=== PATIENT | male | born 1990 | race Caucasian/White ===

== ENCOUNTER 2020-08-03 12:44 | Outpatient (CLI) | payer MEDICARE, MEDICAID | END 2020-08-03 12:45 | disposition home or self-care (01) | LOC: CSHWCC 12:44 | PROVIDERS: ATTEND Nurse Practitioner Family | DX: S31.809D Unspecified open wound of unspecified buttock, subsequent encounter (principal); L05.91 Pilonidal cyst without abscess; F81.0 Specific reading disorder | CPT/HCPCS: 97139; G0463; 99213 ==

== ENCOUNTER 2020-11-29 10:09 | Outpatient (CLI) | payer MEDICARE, MEDICAID, OTHER | END 2020-11-29 10:10 | disposition home or self-care (01) | LOC: CSHWCC 10:09 | PROVIDERS: ATTEND Nurse Practitioner Family | DX: S31.809D Unspecified open wound of unspecified buttock, subsequent encounter (principal); L05.91 Pilonidal cyst without abscess; F81.0 Specific reading disorder | CPT/HCPCS: 99212; G0463 ==

== ENCOUNTER 2020-12-20 13:10 | Outpatient (CLI) | payer MEDICARE, MEDICAID, OTHER | END 2020-12-20 13:11 | disposition home or self-care (01) | LOC: CSHWCC 13:10 | PROVIDERS: ATTEND Nurse Practitioner Family | DX: S31.809A Unspecified open wound of unspecified buttock, initial encounter (principal); L05.91 Pilonidal cyst without abscess; F81.0 Specific reading disorder | CPT/HCPCS: 99212; G0463 ==